=== PATIENT | male | born 1955 | race Caucasian/White ===

== ENCOUNTER 2023-12-01 15:37 | Emergency (ER) | payer MEDICARE ==
[~2023-12-01] VITALS: Ht 167.6 cm; Wt 79.0 kg
[2023-12-01 15:39] VITALS: O2SAT 100
[2023-12-01 17:27] LABS: BASOPHILS % 0.8 % (0.0-2.0); EOSINOPHILS % 0.9 % (0.0-5.0); HEMATOCRIT. 40.5 % (42.0-52.0); HEMOGLOBIN. 13.6 g/dL (14.0-18.0); LYMPHOCYTES % 11.3 % (20.0-50.0); MEAN CORPUSCULAR HEMOGLOBIN 30.9 pg (28.0-32.0); MEAN CORPUSCULAR HGB CONC 33.6 g/dL (31.0-37.0); MONOCYTES % 7.8 % (2.0-8.0); NEUTROPHILS % 79.2 % (40.0-76.0); PLATELET 207 x1000/uL (130-400); WHITE BLOOD COUNT 7.7 x1000/uL (4.5-11.0)
[2023-12-01 17:32] LABS: CHLORIDE 105 mEq/L (98-107); POTASSIUM 4.2 mEq/L (3.5-5.1); SODIUM 137 mEq/L (136-145)
[2023-12-01 17:33] LABS: CALCIUM 9.8 mg/dL (8.7-10.4); CARBON DIOXIDE 28 mEq/L (21-32)
[2023-12-01 17:38] LABS: CREATININE 1.1 mg/dL (0.6-1.3); GLUCOSE 105 mg/dL (70-105); UREA NITROGEN BLOOD 22 mg/dL (9-23)
[2023-12-01 17:39] LABS: TROPONIN I HIGH SENSITIVITY 6 ng/L (3.0-53)
[2023-12-01 17:40] LABS: ALANINE AMINOTRANSFERASE 22 IU/L (10-49); ALBUMIN 4.9 g/dL (3.2-4.8); ASPARTATE AMINOTRANSFERASE 24 IU/L (<34); BILIRUBIN TOTAL 0.5 mg/dL (0.1-1.0); PROTEIN TOTAL 7.3 g/dL (6.0-8.3)
[2023-12-01 17:42] LABS: INR 0.9; PROTHROMBIN TIME 10.5 sec (9.6-11.0)
[2023-12-01] MEDS: HYDROCODONE/ACETAMINOPHEN 5/325MG TABLET PO ONE ×2 (18:01→21:16)
[2023-12-01 20:17] LABS: TROPONIN I HIGH SENSITIVITY 5 ng/L (3.0-53)
[2023-12-01] MEDS ORDERED: HYDR-4001 MT (20:25)
[2023-12-01] MEDS ORDERED: NAPR-681 MT (20:25)
[2023-12-01 20:26] VITALS: BP 130/73; PULSE 50; RESP 18; TEMP 36.72516; O2SAT 97
== END 2023-12-01 21:23 | disposition home or self-care (01) ==
LOC: ER 15:37
DX: R55 Syncope and collapse (principal); M79.10 Myalgia, unspecified site; W18.39XA Other fall on same level, initial encounter; Y93.89 Activity, other specified; Y92.89 Other specified places as the place of occurrence of the external cause; Y99.8 Other external cause status; E78.00 Pure hypercholesterolemia, unspecified
CPT/HCPCS: 36415; 71101; 73080; 80053; 84484; 85025; 99284